=== PATIENT | male | born 1965 | race African-American/Black ===

== ENCOUNTER 2025-04-11 11:03 | Inpatient (IN) | payer OTHER ==
[~2025-04-11] VITALS: Ht 180.3 cm; Wt 101.0 kg
[2025-04-11 11:27] LABS: PLATELET COUNT (AUTO) 224 K/uL (150-450); RED BLOOD CELL COUNT(AUTO) 5.54 MIL/uL (4.50-5.90); RED CELL DISTRIBUTION WIDTH 13.9 % (11.5-14.5); WHITE BLOOD COUNT (AUTO) 11.1 K/uL (4.5-11.0)
[2025-04-11 11:39] LABS: SODIUM SERUM 138 mmol/L (136-145)
[2025-04-11 11:50] LABS: GLUCOSE,RANDOM 101 mg/dL (70-110)
[2025-04-11 11:51] LABS: CALCIUM, TOTAL 9.0 mg/dL (8.8-10.5); CREATININE 1.05 mg/dL (0.60-1.30); GLOMERULAR FILTR. RATE CALC > 60 mL/min (>60)
[2025-04-11 11:56] LABS: APPEARANCE,URINE CLEAR (CLEAR); GLUCOSE, URINE (UA) NEGATIVE (NEGATIVE); LEUKOCYTE ESTERASE ,URINE NEGATIVE (NEGATIVE); NITRATE,URINE NEGATIVE (NEGATIVE); OCCULT BLOOD,URINE MODERATE (NEGATIVE); SPECIFIC GRAVITIY, URINE 1.005 (1.003-1.030)
[2025-04-11 12:00] LABS: UREA NITROGEN, BLOOD 11 mg/dL (7-18)
[2025-04-11] MEDS ORDERED: TAMS0.4C94 PO (17:37)
[2025-04-11] MEDS ORDERED: PRAV20 PO (17:37)
[2025-04-11] MEDS ORDERED: IPRATROPIUM BROMIDE 0.5 MG/2.5 ML NEB SOLUTION NEB PRN (18:30)
[2025-04-11] MEDS ORDERED: ACETAMINOPHEN 325 MG TABLET PO PRN (18:30)
[2025-04-11] MEDS ORDERED: ALBUTEROL SULFATE 2.5 MG/0.5 ML NEB SOLUTION NEB PRN (18:30)
[2025-04-11] MEDS ORDERED: MAGNESIUM HYDROXIDE SUSPENSION 30 ML UDCUP PO PRN (18:30)
[2025-04-11] MEDS ORDERED: BISACODYL 10 MG RECTAL RECTAL SUPPOSITORY PR PRN (18:30)
[2025-04-11] MEDS ORDERED: MORPHINE SULFATE 2 MG/ML SYRINGE IVP PRN (18:30)
[2025-04-11] MEDS ORDERED: ZOLPIDEM TARTRATE 5 MG TABLET PO PRN (18:30)
[2025-04-11] MEDS ORDERED: ONDANSETRON HCL 4 MG/2 ML VIAL IVP PRN (18:30)
[2025-04-11 19:00] VITALS: BP 142/96; PULSE 52; RESP 18; TEMP 98.4; O2SAT 98
[2025-04-11 19:41] VITALS: BP 144/86; PULSE 50; RESP 17; TEMP 98.1; O2SAT 98
[2025-04-11] MEDS: TAMSULOSIN HCL 0.4 MG CAPSULE PO SCH (20:39)
[2025-04-11] MEDS: HYDROCODONE/ACETAMINOPHEN 5-325 MG TABLET PO PRN (20:40)
[2025-04-11] MEDS: HEPARIN SODIUM,PORCINE 5,000 UNITS/ML VIAL SQ SCH (23:21)
[2025-04-12 04:14] VITALS: BP 136/92; PULSE 53; RESP 18; TEMP 97.7; O2SAT 97
[2025-04-12] MEDS: PRAVASTATIN SODIUM 20 MG TABLET PO SCH (08:14)
[2025-04-12] MEDS: PANTOPRAZOLE SODIUM 40 MG DR TABLET PO SCH (08:15)
[2025-04-12 08:27] VITALS: BP 130/80; PULSE 52; RESP 18; TEMP 98.1; O2SAT 99
[2025-04-12] MEDS: PHENAZOPYRIDINE HCL 200 MG TABLET PO SCH (16:13)
[2025-04-12 19:40] VITALS: BP 142/80; PULSE 61; RESP 18; TEMP 98.2; O2SAT 97
[2025-04-13 04:35] VITALS: BP 141/70; PULSE 51; RESP 18; TEMP 98.4; O2SAT 95
[2025-04-13 08:34] VITALS: BP 109/71; PULSE 64; RESP 18; TEMP 98.2; O2SAT 100
[2025-04-13 13:04] LABS: PLATELET COUNT (AUTO) 208 K/uL (150-450); RED BLOOD CELL COUNT(AUTO) 5.52 MIL/uL (4.50-5.90); RED CELL DISTRIBUTION WIDTH 14.2 % (11.5-14.5); WHITE BLOOD COUNT (AUTO) 6.7 K/uL (4.5-11.0)
[2025-04-13 13:11] LABS: CALCIUM, TOTAL 8.6 mg/dL (8.8-10.5); CREATININE 1.02 mg/dL (0.60-1.30); GLOMERULAR FILTR. RATE CALC > 60 mL/min (>60); GLUCOSE,RANDOM 134 mg/dL (70-110); SODIUM SERUM 136 mmol/L (136-145); UREA NITROGEN, BLOOD 12 mg/dL (7-18)
[2025-04-13 13:16] LABS: ASPARTATE AMINOTRANSFERASE 15 U/L (15-37); TOTAL PROTEIN, SERUM 6.4 g/dL (6.4-8.2)
[2025-04-13] MEDS ORDERED: PHEN-674 PO (13:19)
[2025-04-13] MEDS ORDERED: ACET-2247 PO (13:51)
[2025-04-13 19:37] VITALS: BP 137/85; PULSE 87; RESP 20; TEMP 98.8; O2SAT 96
== END 2025-04-13 20:12 | DRG 726 ==
LOC: EMS 11:06 → EDH 13:32 → 6S 18:00
PROVIDERS: ADMIT Hospitalist; ATTEND Hospitalist
DX: N40.1 Benign prostatic hyperplasia with lower urinary tract symptoms (principal); R33.8 Other retention of urine; I10 Essential (primary) hypertension; E78.5 Hyperlipidemia, unspecified; E78.00 Pure hypercholesterolemia, unspecified
CPT/HCPCS: 71045; 76770; 80048; 80053; 81001; 85025; 93005; 99285; J1644; 36415-L1; 36415-TC